=== PATIENT | male | born 1985 | race Caucasian/White ===

== ENCOUNTER 2020-10-31 01:11 | Emergency (ER) | payer BC, SELFPAY ==
[~2020-10-31] VITALS: Ht 188 cm; Wt 117.9 kg
[2020-10-31 01:12] VITALS: Ht 188 cm; Wt 117.9 kg
[2020-10-31 01:44] LABS: CALCIUM 9.3 mg/dL (8.5-10.1); CARBON DIOXIDE 31.9 mmol/L (21-32); CHLORIDE SERUM 101 mmol/L (98-107); CREATININE SERUM 0.9 mg/dL (0.7-1.3); GFR1 > 60 mL/min; GLUCOSE SERUM 103 mg/dL (74-106); POTASSIUM SERUM 4.2 mmol/L (3.5-5.1); SODIUM SERUM 136 mmol/L (136-145)
[2020-10-31 01:49] LABS: ALBUMIN 4.1 g/dL (3.4-5.0); ALKALINE PHOSPHATASE 78 U/L (46-116); ALT/SGPT 49 U/L (16-63); AST/SGOT 16 U/L (15-37); BILIRUBIN TOTAL 0.36 mg/dL (0.20-1.00); TOTAL PROTEIN, SERUM 7.7 g/dL (6.4-8.2)
[2020-10-31 02:19] LABS: BASOPHIL % 0.3 % (0.2-1.5); PLATELET COUNT 346 x10^3mcL (152-348)
[2020-10-31 02:24] LABS: AMPHETAMINE QUAL UR NONE DETECTED (See below)
[2020-10-31 02:58] VITALS: BP 126/78
== END 2020-10-31 02:58 | disposition home or self-care (01) ==
LOC: ED 01:11
PROVIDERS: Student in an Organized Health Care Education/Training Program
DX: F41.9 Anxiety disorder, unspecified (principal); R07.89 Other chest pain; I10 Essential (primary) hypertension; E78.00 Pure hypercholesterolemia, unspecified; Z90.89 Acquired absence of other organs
CPT/HCPCS: 85378; G0480

== ENCOUNTER 2020-11-13 04:23 | Emergency (ER) | payer BC ==
[~2020-11-13] VITALS: Ht 185.4 cm; Wt 154.2 kg
[2020-11-13 04:37] VITALS: Ht 185.4 cm; Wt 154.2 kg
[2020-11-13 05:52] LABS: PLATELET COUNT 323 x10^3mcL (152-348); RED CELL DISTRIBUTION WIDTH 13.5 % (12.1-16.2)
[2020-11-13 06:00] LABS: CALCIUM 8.8 mg/dL (8.5-10.1); CARBON DIOXIDE 25.9 mmol/L (21-32); CHLORIDE SERUM 97 mmol/L (98-107); CREATININE SERUM 0.7 mg/dL (0.7-1.3); GFR1 > 60 mL/min; GLUCOSE SERUM 95 mg/dL (74-106); POTASSIUM SERUM 3.5 mmol/L (3.5-5.1); SODIUM SERUM 130 mmol/L (136-145)
[2020-11-13 06:03] LABS: ALBUMIN 3.9 g/dL (3.4-5.0); ALKALINE PHOSPHATASE 77 U/L (46-116); ALT/SGPT 44 U/L (16-63); AST/SGOT 15 U/L (15-37); BILIRUBIN TOTAL 0.4 mg/dL (0.20-1.00); LIPASE 101 IU/L (73-393); TOTAL PROTEIN, SERUM 7.1 g/dL (6.4-8.2)
[2020-11-13] MEDS ORDERED: BEN20 PO (07:01)
[2020-11-13 07:15] VITALS: BP 116/59
== END 2020-11-13 07:15 | disposition left against medical advice (07) ==
LOC: ED 04:23
PROVIDERS: Emergency Medicine
DX: R10.10 Upper abdominal pain, unspecified (principal); I10 Essential (primary) hypertension; E78.00 Pure hypercholesterolemia, unspecified; Z90.89 Acquired absence of other organs
CPT/HCPCS: J0500; J1885